=== PATIENT | female | born 1965 | race Hispanic/Latino ===

== ENCOUNTER → 2021-12-11 | Outpatient (CLI) | payer BC ==
[~2021-12-11] MED LIST: ATOR20TA65 PO; INSLAN SQ; METF-446 PO; SYRI-1554 MC
[2021-12-11 12:39] LABS: BASOPHILS % (AUTO) 0.7 % (0.0-5.0); EOSINOPHILS % (AUTO) 1.2 % (0.0-8.0); HEMATOCRIT 35.5 % (36-48); LYMPHOCYTES % (AUTO) 33.1 % (21.0-51.0); MEAN CORPUSCULAR HEMOGLOBIN 30.5 pg (27.0-33.0); MEAN CORPUSCULAR HGB CONC 34.1 g/dL (32.0-36.0); MEAN CORPUSCULAR VOLUME 89.4 fL (79-99); MONOCYTES % (AUTO) 6.5 % (3.0-13.0); NEUTROPHILS % (AUTO) 57.9 % (40.0-77.0); PLATELET COUNT (AUTO) 256 K/uL (130-400); RED BLOOD CELL COUNT(AUTO) 3.97 MIL/uL (4.00-5.50); RED CELL DISTRIBUTION WIDTH 11.9 % (11.0-15.5)
[2021-12-11 12:45] LABS: ALBUMIN 3.8 g/dL (3.5-5.0); POTASSIUM 4.9 mmol/L (3.5-5.1); TOTAL PROTEIN, SERUM 7.5 g/dL (6.0-8.3)
== END | disposition home or self-care (01) ==
LOC: LAB 08:12
PROVIDERS: ATTEND Internal Medicine Cardiovascular Disease
DX: E78.5 Hyperlipidemia, unspecified (principal); E11.59 Type 2 diabetes mellitus with other circulatory complications; R06.00 Dyspnea, unspecified; R00.1 Bradycardia, unspecified; R00.2 Palpitations
CPT/HCPCS: 36415; 80053; 80061; 85025

== ENCOUNTER 2024-04-07 22:00 | Emergency (ER) | payer BC, OTHER ==
[~2024-04-07] VITALS: Ht 154.9 cm; Wt 47.6 kg
[2024-04-07 22:01] VITALS: TEMP 98
[2024-04-07 22:25] LABS: APPEARANCE,URINE CLEAR (CLEAR); BILIRUBIN,URINE NEGATIVE (NEGATIVE); COLOR,URINE LIGHT-YELLOW (YELLOW); GLUCOSE, URINE (UA) 50 mg/dL (NEGATIVE); KETONES,URINE NEGATIVE (NEGATIVE); LEUKOCYTE ESTERASE ,URINE 250 Leu/uL (NEGATIVE); NITRATE,URINE NEGATIVE (NEGATIVE); OCCULT BLOOD,URINE NEGATIVE (NEGATIVE); PROTEIN,URINE NEGATIVE (NEGATIVE); UROBILINOGEN,URINE 0.2 mg/dL (0.2-1.0)
[2024-04-07 22:26] LABS: ADD UA MICROSCOPIC YES
[2024-04-07 22:27] LABS: BACTERIA,URINE RARE /HPF (None Seen); MUCUS,URINE RARE LPF (None Seen); RBC,URINE 0-1 /HPF (0-1); SQUAMOUS EPITHELIAL CELL,UR FEW /HPF (0-2)
--- NOTE | 2024-04-07 22:51 | ERN ---
ED Note History of Present Illness Stated Complaint: NEAR SYNCOPE Chief Complaint: Syncope Time Seen by : 22:03 Dictation: This is a 59-year-old female who presented to the emergency room with complaints of near-syncope. This happened an hour prior to the presentation when she went to work and along with her co-worker she was trying to clock in when she almost blacked out and lean her head on the left side towards the wall. She did not fall on the ground. No loss of consciousness no blood thinners. No slurred speech facial droop or weakness. No chest pain palpitations. No fever chills or rigors. No vomitings or diarrhea. Patient has a known history of orthostatic hypotension in the past. Temperature 98 pulse 99 respirations 18 blood pressure 130/70 with a pulse oximetry of 100% on room air Chronic medical problems include diabetes mellitus and hypercholesterolemia Please note that the patient is on metformin, insulin and Mounjaro for glycemic control PCP Dr. French in [place] Allergies: Coded Allergies: No Known Drug Allergies (Unverified Allergy, Unknown, 09/25/20) Home Meds Active Scripts Syring W-Ndl,Disp,Insul,0.5 ml (Easy Comfort Insulin Syringe) 1 Each Disp.syrin, EACH MC HS for insulin administration, #100 3 Refills Prov:BENNY SHEPHERD Jr., MD 09/30/20 Atorvastatin Calcium (Atorvastatin Calcium) 20 Mg Tablet, 20 MG PO HS for 30 Days, #30 TAB Prov:BENNY SHEPHERD Jr., MD 09/30/20 Insulin Glargine,Hum.rec.anlog (Lantus) 100 Units/Ml Inj, 10 UNITS SQ HS for 30 Days, #1 VIAL 3 Refills Prov:BENNY SHEPHERD Jr., MD 09/30/20 Metformin HCl (Metformin HCl) 1,000 Mg Tablet, 1000 MG PO BIDMEALS for 30 Days, #60 TAB Prov:BENNY SHEPHERD Jr., MD 09/30/20 Past Medical History Past Medical History: Diabetes-Type I, Diabetes-Type II Surgical History: Hysterectomy, Other Surgical History Other: CATARACT Family History: Negative Social History: Negative History: Not Applicable RN Note Reviewed/Agreed w/PFSH: Yes Review of System Dictation As described in the history of present illness Constitutional: Negative for fever,chills, and weight loss Eyes: Negative for injury, pain,redness, and discharge ENT: Negative for injury,pain or swelling Cardiovascular: Negative for chest pain, palpitations, and edema Respiratory: Negative for shortness of breath, cough, and wheezing, Abdomen/GI: Negative for abdominal pain, nausea, vomiting, diarrhea, and constipation Back: Negative for injury and pain : Negative for injury, bleeding and discharge MS/Extremity: Negative for injury and deformity Skin: Negative for rash, and discoloration Neuro: Negative for headache, weakness, numbness, tingling, and seizure Psych: Negative for suicide ideation, homicidal ideation, and hallucinations Initial Vital Sign VS Vital Signs Date Time Temp Pulse Resp B/P (MAP) Pulse Ox O2 Delivery O2 Flow Rate FiO2 04/07/24 22:01 98.1 99 18 130/70 100 Room Air 04/07/24 22:18 0 21 Physical Exam Dictation General: awake, alert, NAD Head/Face: Normocephalic, atraumatic Eyes: PERRL, EOMI, vision at baseline ENT: oral cavity clear, TMs clear, no signs of infection Neck: Trachea midline, supple, no nuchal rigidity Cardiovascular: RRR, normal S1/S2, No MRGs, no JVD Respiratory: CTAB, no respiratory distress, No rales or wheezes Abdomen: Soft, non-tender, non-distended, normal bowel sounds, no guarding or rebound. Skin: Warm, dry, normal turgor, no rash MS/Extremity: Pulses equal, no cyanosis, neurovascular intact, FROM Neuro: COAx4, GCS 15, strength 5/5, CN 2-12 intact, normal cerebellar exam, normal gait, Psych: Normal behavior, mood, and affect normal Extremities-trace edema without any palpable cords, Homans sign is negative Results (Laboratory/Radiology) Laboratory/Radiology Laboratory Tests Test 04/07/24 22:11 04/07/24 22:19 Urine Color LIGHT-YELLOW (YELLOW) Urine Appearance CLEAR (CLEAR) Urine pH 5.0 (5.0-8.0) Urine Specific [place] 1.012 (1.001-1.031) Urine Protein NEGATIVE mg/dL (NEGATIVE) Urine Glucose (UA) 50 mg/dL (NEGATIVE) H Urine Ketones NEGATIVE mg/dL (NEGATIVE) Urine Occult Blood NEGATIVE (NEGATIVE) Urine Nitrate NEGATIVE (NEGATIVE) Urine Bilirubin NEGATIVE mg/dL (NEGATIVE) Urine Urobilinogen 0.2 mg/dL (0.2-1.0) Urine Leukocyte Esterase 250 Saturnino/uL (NEGATIVE) H Urine RBC 0-1 /HPF (0-1) Urine WBC 11-25 /HPF (0-1) H Urine Squamous Epithelial Cells FEW /HPF (0-2) Urine Bacteria RARE /HPF (None Seen) Urine Hyaline Casts 2-5 /LPF (0-1 /LPF) H White Blood Count 6.4 K/uL (4.8-10.8) Red Blood Count 3.82 MIL/uL (4.00-5.50) L Hemoglobin 11.6 g/dL (12.0-16.0) L Hematocrit 33.9 % (36-48) L Mean Corpuscular Volume 88.7 fL (79-99) Mean Corpuscular Hemoglobin 30.4 pg (27.0-33.0) Mean Corpuscular Hemoglobin Concent 34.2 g/dL (32.0-36.0) Red Cell Distribution Width 11.8 % (11.0-15.5) Platelet Count 277 K/uL (130-400) Mean Platelet Volume 9.9 fL (7.5-10.5) Immature Granulocyte % (Auto) 0.3 % (0-1) Neutrophils (%) (Auto) 60.9 % (40.0-77.0) Lymphocytes (%) (Auto) 29.5 % (21.0-51.0) Monocytes (%) (Auto) 7.9 % (3.0-13.0) Eosinophils (%) (Auto) 0.6 % (0.0-8.0) Basophils (%) (Auto) 0.8 % (0.0-5.0) Neutrophils # (Auto) 3.9 K/uL (1.8-7.7) Lymphocytes # (Auto) 1.9 K/uL (1.0-4.8) Monocytes # (Auto) 0.5 K/uL (0.1-1.0) Eosinophils # (Auto) 0.04 K/uL (0.00-0.70) Basophils # (Auto) 0.05 K/uL (0.00-0.20) Absolute Immature Granulocyte (auto 0.02 K/uL (0-1) Nucleated Red Blood Cells 0.0 % (0.0-0.19) Sodium Level 141 mmol/L (136-145) Potassium Level 4.4 mmol/L (3.5-5.1) Chloride Level 103 mmol/L (101-111) Carbon Dioxide Level 24 mmol/L (21-32) Blood Urea Nitrogen 45 mg/dL (7-18) H Creatinine 2.3 mg/dL (0.5-1.0) H Glomerular Filtration Rate Calc 24 mL/min (>90) Random Glucose 109 mg/dL (70-105) H Total Calcium 9.1 mg/dL (8.5-10.1) Labs Reviewed?: Yes ED Course ED Course Orders Procedure Category Date Status Time Urinalysis Profile LAB 04/07/24 Complete 22:09 Orthostatic Vital CPOE 04/07/24 Transmitted Signs 22:22 Culture Urine BROOKE 04/07/24 In Process 22:26 12 Lead Ekg Tracing- EKG 04/07/24 Logged Technical 22:29 Cbc With Differential LAB 04/07/24 Complete 22:29 Basic Metabolic Panel LAB 04/07/24 Complete 22:29 0.9% Nacl 500ml PHA 04/07/24 In Process Iv.Soln (Ns 500ml 22:30 Ceftriaxone 1g Vial PHA 04/07/24 Complete (Rocephine 1g Inj) 23:00 Current Medications Medications (Trade) Dose Ordered Sig/Carmelita Route PRN Reason Start Time Stop Time Status Last Admin Dose Admin Ceftriaxone Sodium (ROCEphine 1G INJ) 1 gm ONCE ONCE IVPB 04/07/24 23:00 04/07/24 23:01 DC 04/07/24 22:56 Sodium Chloride 500 ml @ 0 mls/hr Q0M IV 04/07/24 22:30 05/07/24 22:29 04/07/24 22:53 Vital Signs Date Time Temp Pulse Resp B/P (MAP) Pulse Ox O2 Delivery O2 Flow Rate FiO2 04/07/24 23:48 95 16 135/72 100 Room Air* 0 04/07/24 23:05 96 18 130/67 100 Room Air* 0 21 04/07/24 22:24 100 17 121/58 Room Air* 0 21 04/07/24 22:20 100 17 124/59 Room Air* 0 21 04/07/24 22:18 100 18 142/74 Room Air* 0 21 04/07/24 22:01 98.1 99 18 130/70 100 Room Air We will perform diagnostic labs, advanced imaging and administer medications according to the patient's complaint. Once the results are available, will review and personally interpreted the labs to rule out any acute life- threatening emergency the trach require immediate intervention and treatment. I will then re-evaluate the patient after treatment and diagnostic exams have return to determine whether the patient requires any further testing, can safely be discharged home or need further admission to hospital for additional treatment and evaluation. I reviewed labs urinalysis was significant for positive leuko esterase and WBCs suggestive of a UTI. BNP 7 showed increased BUN and creatinine and patient is not aware of any underlying previous renal dysfunction. I explained to her that severe dehydration with a prerenal state could certainly be causing some orthostasis. She indicated to me also that at times her sugars are 50s and metformin may also with the culprit for worsening renal function I instructed her to stop metformin. I have given her aggressive hydration and also empiric antibiotics for UTI. EKGs completely normal she is to follow up with her primary care physician in [place] Tuesday or Tuesday and follow up renal function studies need to be pursued. Medical Decision Making MDM MDM: Differential diagnosis: Rationale: Tests considered and ordered secondary to shared decision making include: Previous outside records reviewed: Old ER visits. Risk of complication and/or morbidity or mortality of patient management: None Medications-Per medication reconciliation Need for hospitalization: Patient does not meet criteria for hospitalization. Need for emergency major/minor surgery: No There are no social concerns with this patient. Prescription drug management Prescriptions will include symptomatic care Patient's prior external medical records from other ER visits were reviewed by me as indicated. Prior testing and results from previous visits were reviewed. Prior tests were taken into account with medical decision making and resource utilization, independent historian/historians were used to obtain complete medical history. I independently interpreted the test that were performed, results were reviewed by me and considered findings on radiology if ordered. Medical management and examination interpretation discussions were had by me with other qualified healthcare professionals as indicated for the patient's care. Problem List Problem List: (1) Near syncope (2) UTI (urinary tract infection) (3) Dehydration (4) Diabetes mellitus (5) Acute renal insufficiency DX & DISP Disposition: Discharge Departure Impression: Primary Impression: Near syncope Additional Impressions: Dehydration, Diabetes mellitus, UTI (urinary tract infection), Acute renal insufficiency Condition: Stable Scripts Nitrofurantoin Monohyd/M-Cryst (Macrobid 100 mg Capsule) 100 Mg Capsule 1 CAP PO BID for 7 Days, #14 CAP 0 Refills Prov: TANJA SMITH MD 04/08/24 Additional Instructions: Patient and the caregiver have been informed of all the diagnostic tests and the imaging conducted during the today's visit to the emergency room and has verbalized understanding of the results I have personally reviewed and interpreted all diagnostic exams performed here in the ER today as well as the vital signs documented by the nursing staff. The patient is now being discharged to home and should follow up with the primary care physician or the specialist as directed by the ER staff. Follow-up with primary care provider in 1 to 2 days. Take medications as directed here in the emergency room. Okay to continue home medications unless otherwise discussed during your visit in the emergency room today. Return to your nearest emergency room if symptoms worsen or if there is no improvement. Call 911 if you need immediate assistance. Take Tylenol or Motrin [id number] as needed and if no contraindications are present. Increase oral hydration. A wound culture or urine culture was ordered here in the emergency room department please follow-up with primary care provider and advise them to get repeat ports from our facility. If you had any Jose wrap/splints that were applied here, please do not remove them until you see your primary care or specialty. STOP METFORMIN UNTIL RE-EVALUATION BY PRIMARY CARE PHYSICIAN BUN AND CREATININE ARE AT 45 AND 2.3 WHICH NEEDS TO BE FOLLOWED UP IN THE NEXT 2 WEEKS. Referrals: JANELLE FRENCH (PCP) TANJA SMITH MD Apr 07, 2024 22:51
[2024-04-07] MEDS: 0.9% NACL 500ML IV.SOLN 500 ML IV SCH (22:53)
[2024-04-07] MEDS: cefTRIAXone 1G VIAL IVPB ONE (22:56)
[2024-04-07 22:58] LABS: BASOPHILS # (AUTO) 0.05 K/uL (0.00-0.20); BASOPHILS % (AUTO) 0.8 % (0.0-5.0); EOSINOPHILS # (AUTO) 0.04 K/uL (0.00-0.70); EOSINOPHILS % (AUTO) 0.6 % (0.0-8.0); HEMATOCRIT 33.9 % (36-48); IMMATURE GRANULOCYTE ABSOLUTE 0.02 K/uL (0-1); LYMPHOCYTES # (AUTO) 1.9 K/uL (1.0-4.8); LYMPHOCYTES % (AUTO) 29.5 % (21.0-51.0); MEAN CORPUSCULAR HEMOGLOBIN 30.4 pg (27.0-33.0); MEAN CORPUSCULAR HGB CONC 34.2 g/dL (32.0-36.0); MEAN CORPUSCULAR VOLUME 88.7 fL (79-99); MONOCYTES # (AUTO) 0.5 K/uL (0.1-1.0); MONOCYTES % (AUTO) 7.9 % (3.0-13.0); NEUTROPHILS # (AUTO) 3.9 K/uL (1.8-7.7); NEUTROPHILS % (AUTO) 60.9 % (40.0-77.0); PLATELET COUNT (AUTO) 277 K/uL (130-400); RED BLOOD CELL COUNT(AUTO) 3.82 MIL/uL (4.00-5.50); RED CELL DISTRIBUTION WIDTH 11.8 % (11.0-15.5); WHITE BLOOD COUNT (AUTO) 6.4 K/uL (4.8-10.8)
[2024-04-07 23:10] LABS: CREATININE 2.3 mg/dL (0.5-1.0); POTASSIUM 4.4 mmol/L (3.5-5.1)
[2024-04-07 23:48] VITALS: BP 135/72; PULSE 95; RESP 16; O2SAT 100
[2024-04-08] MEDS ORDERED: NITR100C4 PO (00:22)
--- NOTE | 2024-04-08 15:45 | EKG ---
[facility] Test Date: 2024-04-07 Test Time: 22:57:07 Pat Name: KAMRAN DELGADILLO Department: ED Room: Gender: F Supervisor Packing Room: 1081 : 1965 Requested By: TANJA SMITH Order Number: [id number] Reading MD: Braulio Chávez Measurements Intervals [place] Rate: 98 P: 33 VT: 141 QRS: 42 QRSD: 79 T: 6 QT: 335 QTc: 428 Interpretive Statements Sinus rhythm Compared to ECG 09/25/2020 17:12:03 Sinus tachycardia no longer present Myocardial infarct finding no longer present Electronically Signed On 04-09-2024 21:35:31 [employer] by Braulio Chávez Please click the below link to view image of tracing.
== END 2024-04-08 00:30 | disposition home or self-care (01) ==
LOC: EDH 22:00
DX: R55 Syncope and collapse (principal); E86.0 Dehydration; E11.9 Type 2 diabetes mellitus without complications; N39.0 Urinary tract infection, site not specified; N28.9 Disorder of kidney and ureter, unspecified; Z90.710 Acquired absence of both cervix and uterus
CPT/HCPCS: 99284; 96365; 80048; 85025; 87086; 81001; 36415; 93005; J7040; J0696